=== PATIENT | male | born 1970 | race Caucasian/White ===

== ENCOUNTER 2021-05-11 12:58 | Outpatient (REF) | payer OTHER, SELFPAY ==
[2021-05-11 15:05] LABS: Alanine Aminotransferase 32 U/L (0-40); Cholesterol 122 mg/dL; HDL Cholesterol 54 mg/dL; LDL Cholesterol Calculated 50 mg/dl; Triglycerides 94 mg/dL
== END 2021-05-11 12:59 | disposition home or self-care (01) ==
LOC: HO.LAB 12:58
PROVIDERS: PCP Internal Medicine; Visit Provider Internal Medicine Interventional Cardiology
DX: Q21.1 Atrial septal defect (principal)
CPT/HCPCS: 36415; 80061; 84460

== ENCOUNTER 2022-07-12 06:27 | Outpatient (REF) | payer OTHER, SELFPAY ==
[2022-07-12 06:37] LABS: MANUAL DIFF FLAG NO
[2022-07-12 07:31] LABS: Basophils Percent Auto 0.4 % (0-2); Eosinophils Absolute Auto 0.1 X10*3/uL (0.0-0.4); Hematocrit 38.5 % (42.0-52.0); Hemoglobin 12.8 g/dl (14.0-18.0); Imm Gran Abs Auto 0.02 X10*3/uL (0.00-0.03); Imm Gran Pct Auto 0.3 % (0.0-0.4); Lymphocytes Absolute Auto 1.9 X10*3/uL (1.2-4.9); Lymphocytes Percent Auto 25.8 % (20-40); Mean Corpuscular HGB Conc 33.2 g/dl (31.0-36.0); Mean Corpuscular Hemoglobin 32.2 pg (27.0-33.0); Mean Corpuscular Volume 96.7 fL (80.0-98.0); Mean Platelet Volume 9.4 fL (9.4-12.4); Monocytes Absolute Auto 0.7 X10*3/uL (0.1-1.2); Monocytes Percent Auto 9.7 % (2-11); Neutrophils Absolute Auto 4.5 x10*3/uL (2.0-8.3); Neutrophils Percent Auto 62.8 % (45-73); Platelet Count 192 X10*3/uL (160-400); Red Blood Count 3.98 X10*6/uL (4.60-5.80); White Blood Count 7.2 X10*3/uL (4.8-10.8)
[2022-07-12 08:09] LABS: Alanine Aminotransferase 25 U/L (0-40); Albumin Level 4.3 g/dL (3.5-5.0); Alkaline Phosphatase 49 U/L (39-117); Anion Gap 9 (12-20); Aspartate Amino Transferase 26 U/L (5-37); Bilirubin Total 0.6 mg/dL (0.0-1.0); Blood Urea Nitrogen 28 mg/dL (9-16); Calcium 9.1 mg/dL (8.4-10.2); Carbon Dioxide 27 mmol/L (22-29); Chloride 105 mmol/L (96-108); Cholesterol 98 mg/dL; Estimated Glomerular Filt Rate > 60; Glucose Fasting 121 mg/dL (60-99); HDL Cholesterol 45 mg/dL; LDL Cholesterol Calculated 45 mg/dl; Potassium 4.4 mmol/L (3.3-5.1); Sodium 137 mmol/L (135-145); Total Protein 6.7 g/dL (6.5-8.0); Triglycerides 41 mg/dL
== END 2022-07-12 06:28 | disposition home or self-care (01) ==
LOC: HO.LAB 06:27
PROVIDERS: PCP Internal Medicine; Visit Provider Internal Medicine
DX: Z12.5 Encounter for screening for malignant neoplasm of prostate (principal); I25.10 Atherosclerotic heart disease of native coronary artery without angina pectoris; I10 Essential (primary) hypertension; E78.00 Pure hypercholesterolemia, unspecified
CPT/HCPCS: 36415; 80053; 80061; 84153; 85025

== ENCOUNTER 2022-07-20 06:00 | Outpatient (REF) | payer OTHER, SELFPAY ==
[2022-07-20 07:17] LABS: Glucose Fasting 123 mg/dL (60-99); Iron 73 mcg/dL (45-160); Percent Iron Saturation 29 % (15-50); Total Iron Binding Capacity 250 mcg/dL (228-428); Unsaturated Iron Binding 177 ug/dL
[2022-07-20 07:29] LABS: Estimated Average Glucose 120 mg/dL; Hemoglobin A1c % 5.8 %
== END 2022-07-20 06:01 | disposition home or self-care (01) ==
LOC: HO.LAB 06:00
PROVIDERS: PCP Internal Medicine; Visit Provider Internal Medicine
DX: R73.9 Hyperglycemia, unspecified (principal); D64.9 Anemia, unspecified
CPT/HCPCS: 36415; 82947; 83036; 83540

== ENCOUNTER 2023-12-25 15:29 | Outpatient (REF) | payer MEDICARE, SELFPAY ==
[2023-12-25 15:48] LABS: MANUAL DIFF FLAG NO
[2023-12-25 16:35] LABS: Basophils Percent Auto 0.5 % (0-2); Eosinophils Percent Auto 0.4 % (0-4); Hemoglobin 13.2 g/dl (14.0-18.0); Imm Gran Abs Auto 0.02 X10*3/uL (0.00-0.03); Imm Gran Pct Auto 0.2 % (0.0-0.4); Lymphocytes Absolute Auto 2.2 X10*3/uL (1.2-4.9); Lymphocytes Percent Auto 25.4 % (20-40); Mean Corpuscular HGB Conc 34.7 g/dl (31.0-36.0); Mean Corpuscular Hemoglobin 32.9 pg (27.0-33.0); Mean Corpuscular Volume 94.8 fL (80.0-98.0); Mean Platelet Volume 9.8 fL (9.4-12.4); Monocytes Percent Auto 11.4 % (2-11); Neutrophils Absolute Auto 5.3 x10*3/uL (2.0-8.3); Neutrophils Percent Auto 62.1 % (45-73); Platelet Count 194 X10*3/uL (160-400); Red Blood Count 4.01 X10*6/uL (4.60-5.80); White Blood Count 8.5 X10*3/uL (4.8-10.8)
[2023-12-25 17:14] LABS: Alanine Aminotransferase 42 U/L (0-40); Albumin Level 4.6 g/dL (3.5-5.0); Alkaline Phosphatase 65 U/L (39-117); Anion Gap 15 (12-20); Aspartate Amino Transferase 34 U/L (5-37); Bilirubin Total 0.7 mg/dL (0.0-1.0); Blood Urea Nitrogen 31 mg/dL (9-16); Calcium 10.2 mg/dL (8.4-10.2); Carbon Dioxide 26 mmol/L (22-29); Chloride 104 mmol/L (96-108); Cholesterol 109 mg/dL (<200); Estimated Glomerular Filt Rate > 60; Glucose Random 119 mg/dL (60-115); HDL Cholesterol 51 mg/dL (>40); LDL Cholesterol Calculated 41 mg/dL (<100); Potassium 4.2 mmol/L (3.3-5.1); Sodium 141 mmol/L (135-145); Total Protein 7.8 g/dL (6.5-8.0); Triglycerides 87 mg/dL (<150)
[2023-12-25 17:19] LABS: Appearance Urine Clear; Color Urine Yellow; Glucose Urine UA Negative (Negative); Leukocyte Esterase Urine Negative (Negative); Nitrite Urine Negative (Negative); PH 5.5 (5.0-9.0); Specific Gravity - Urine 1.025 (1.005-1.025); Urine Blood Negative (Negative); Urine Ketones Negative (Negative); Urine Protein Negative (Neg-Trace)
[2023-12-25 17:34] LABS: Prostate Specific Antigen 0.65 ng/mL (<0.05-4.0)
== END 2023-12-25 15:30 | disposition home or self-care (01) ==
LOC: HO.LAB 15:29
PROVIDERS: PCP Internal Medicine; Visit Provider Internal Medicine
DX: I25.10 Atherosclerotic heart disease of native coronary artery without angina pectoris (principal); I10 Essential (primary) hypertension; E78.00 Pure hypercholesterolemia, unspecified; Z12.5 Encounter for screening for malignant neoplasm of prostate
CPT/HCPCS: 36415; 80053; 80061; 81003; 84153; 85025

== ENCOUNTER 2024-07-05 15:16 | Outpatient (AMB) | payer MEDICARE, SELFPAY ==
--- NOTE | 2024-07-05 15:52 | A.OFFPC_ITS ---
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 On statin, BB, lisinopril hctz. 118/64. Denies chest pain, exertional dypsnea. Has been working out daily for the past year and l imiting calories without any successful weight loss Follows with dermatology, Dr Loo Colonoscopy at age 49-10 years. ROS CONSTITUTIONAL: Denies weight loss, fever and chills. HEENT: Denies changes in vision and hearing. RESPIRATORY: Denies SOB and cough. CV: Denies palpitations and CP GI: Denies abdominal pain, nausea, vomiting and diarrhea. : Denies dysuria and urinary frequency. MSK: Denies new myalgia and joint pain. SKIN: Denies rash and pruritus. NEUROLOGICAL: Denies headache PSYCHIATRIC: Denies recent changes in mood. PHYSICAL EXAM: GENERAL: Alert and oriented x 3. NAD EYES: EOMI. Anicteric. HENT: Moist mucous membranes. No scleral icterus. No cervical lymphadenopathy. LUNGS: Clear to auscultation bilaterally. CARDIOVASCULAR: Regular rate and rhythm. No murmur. No JVD. ABDOMEN: Soft, non-tender +bs EXTREMITIES: No edema. Non-tender. SKIN: No rashes or lesions. Warm. NEUROLOGIC: No focal neurological deficits. CN II-XII grossly intact PSYCHIATRIC: Cooperative. Appropriate mood and affect Physical exam (Primary Care) Vital Signs: Last Vital Signs Temp 98.1 F 07/05/24 15:59 Pulse 58 07/05/24 15:59 Resp 16 07/05/24 15:59 BP 118/64 07/05/24 15:59 Pulse Ox 95 07/05/24 15:59 Oxygen Delivery Method Room Air 07/05/24 15:59 BMI result Body Mass Index 35.6 Coding Level of Care Code New Pt Level 4 (54053) Complex EM visit Add On G2211 Diagnoses Hyperlipidemia, unspecified hyperlipidemia type E78.5 Hyperlipidemia type: unspecified Coronary artery disease involving [place] coronary artery of [place] heart without angina pectoris I25.10 Coronary Disease-Associated Artery/Lesion type: [place] artery [place] vs. transplanted heart: [place] heart Associated angina: without angina Primary hypertension I10 Hypertension type: primary hypertension Prediabetes R73.03 Assessment & Plan Assessment & Plan (1) Hyperlipidemia: Code(s): E78.5 - Hyperlipidemia, unspecified Category: Medical Qualifiers: Hyperlipidemia type: unspecified Qualified Code(s): E78.5 - Hyperlipidemia, unspecified (2) CAD (coronary artery disease): Code(s): I25.10 - Atherosclerotic heart disease of [place] coronary artery without angina pectoris Category: Medical Qualifiers: Coronary Disease-Associated Artery/Lesion type: [place] artery [place] vs. transplanted heart: [place] heart Associated angina: without angina Qualified Code(s): I25.10 - Atherosclerotic heart disease of [place] coronary artery without angina pectoris (3) Hypertension: Code(s): I10 - Essential (primary) hypertension Category: Medical Qualifiers: Hypertension type: primary hypertension Qualified Code(s): I10 - Essential (primary) hypertension (4) Prediabetes: Code(s): R73.03 - Prediabetes Category: Medical Plan 53 yo to establish Past medical, surgical, social and family history reviewed CAD with htn, hld and obesity. Recommend zepbound which is sent. zofran prn HTN-well controlled on current medication Orders: Orders Comprehensive Met. Panel Today E66.9 - Obesity, unspecified, E78.5 - Hyperlipidemia, unspecified, I10 - Essential (primary) hypertension, I25.10 - Atherosclerotic heart disease of [place] coronary artery without angina pectoris Lipid Panel Today E66.9 - Obesity, unspecified, E78.5 - Hyperlipidemia, unspecified, I10 - Essential (primary) hypertension, I25.10 - Atherosclerotic heart disease of [place] coronary artery without angina pectoris Prostate Specific Antigen Today E78.5 - Hyperlipidemia, unspecified, I10 - Essential (primary) hypertension, I25.10 - Atherosclerotic heart disease of [place] coronary artery without angina pectoris, R73.03 - Prediabetes Hemoglobin A1c Today E66.9 - Obesity, unspecified, E78.5 - Hyperlipidemia, unspecified, I10 - Essential (primary) hypertension, I25.10 - Atherosclerotic heart disease of [place] coronary artery without angina pectoris Comprehensive Met. Panel 6 Months E78.5 - Hyperlipidemia, unspecified, I10 - Essential (primary) hypertension, I25.10 - Atherosclerotic heart disease of [place] coronary artery without angina pectoris, R73.03 - Prediabetes Complete Blood Count Auto Diff Today E78.5 - Hyperlipidemia, unspecified, I10 - Essential (primary) hypertension, I25.10 - Atherosclerotic heart disease of [place] coronary artery without angina pectoris, R73.03 - Prediabetes Lipid Panel 6 Months E78.5 - Hyperlipidemia, unspecified, I10 - Essential (primary) hypertension, I25.10 - Atherosclerotic heart disease of [place] coronary artery without angina pectoris, R73.03 - Prediabetes Hemoglobin A1c 6 Months E78.5 - Hyperlipidemia, unspecified, I10 - Essential (primary) hypertension, I25.10 - Atherosclerotic heart disease of [place] coronary artery without angina pectoris, R73.03 - Prediabetes Referrals Cardiology Referral E78.5 - Hyperlipidemia, unspecified, I10 - Essential (primary) hypertension, I25.10 - Atherosclerotic heart disease of [place] coronary artery without angina pectoris, R73.03 - Prediabetes Dermatology Referral D22.9 - Melanocytic nevi, unspecified, E78.5 - Hyperlipidemia, unspecified, I10 - Essential (primary) hypertension, I25.10 - Atherosclerotic heart disease of [place] coronary artery without angina pectoris, R73.03 - Prediabetes Medications: New Zepbound (tirzepatide (weight loss)) for 4 weeks 2.5 mg (0.5 mL) subcut QWEEK 2 mL 1RF NS E66.9 - Obesity, unspecified, I10 - Essential (primary) hypertension, I25.10 - Atherosclerotic heart disease of [place] coronary artery without angina pectoris ondansetron HCl 4 mg PO Q8H PRN 30 tabs 0RF nausea and vomiting
[2024-07-05 15:59] VITALS: BP 118/64; PULSE 58; RESP 16; TEMP 36.7; O2SAT 95; BMI 35.6
== END 2024-07-05 16:26 | disposition home or self-care (01) ==
LOC: HO.HMCHD 15:16
PROVIDERS: PCP Internal Medicine; Visit Provider Internal Medicine
DX: E78.5 Hyperlipidemia, unspecified (principal); I25.10 Atherosclerotic heart disease of native coronary artery without angina pectoris; I10 Essential (primary) hypertension; R73.03 Prediabetes

== ENCOUNTER → 2024-07-05 15:16 | Outpatient (BNVA) | payer MEDICARE, SELFPAY | PROVIDERS: PCP Internal Medicine; Visit Provider Internal Medicine | DX: I25.10 Atherosclerotic heart disease of native coronary artery without angina pectoris (principal); I25.2 Old myocardial infarction; I10 Essential (primary) hypertension; E78.5 Hyperlipidemia, unspecified; R73.03 Prediabetes; E66.9 Obesity, unspecified; D22.9 Melanocytic nevi, unspecified; Z68.35 Body mass index [BMI] 35.0-35.9, adult | CPT/HCPCS: 99202 ==

== ENCOUNTER 2024-07-06 07:04 | Outpatient (REF) | payer MEDICARE, SELFPAY ==
[2024-07-06 07:20] LABS: MANUAL DIFF FLAG NO
[2024-07-06 07:32] LABS: Basophils Absolute Auto 0.1 X10*3/uL (0.0-0.2); Basophils Percent Auto 0.7 % (0-2); Eosinophils Absolute Auto 0.1 X10*3/uL (0.0-0.4); Eosinophils Percent Auto 1.6 % (0-4); Hematocrit 37.7 % (42.0-52.0); Hemoglobin 12.9 g/dl (14.0-18.0); Imm Gran Abs Auto 0.03 X10*3/uL (0.00-0.03); Imm Gran Pct Auto 0.4 % (0.0-0.4); Lymphocytes Absolute Auto 2.2 X10*3/uL (1.2-4.9); Mean Corpuscular HGB Conc 34.2 g/dl (31.0-36.0); Mean Corpuscular Hemoglobin 32.7 pg (27.0-33.0); Mean Corpuscular Volume 95.4 fL (80.0-98.0); Mean Platelet Volume 9.4 fL (9.4-12.4); Monocytes Absolute Auto 0.8 X10*3/uL (0.1-1.2); Neutrophils Absolute Auto 4.4 x10*3/uL (2.0-8.3); Neutrophils Percent Auto 58.3 % (45-73); Platelet Count 164 X10*3/uL (160-400); Red Blood Count 3.95 X10*6/uL (4.60-5.80); Red Cell Distribution Width 13.2 % (11.0-16.0); White Blood Count 7.5 X10*3/uL (4.8-10.8)
[2024-07-06 07:49] LABS: Estimated Average Glucose 137 mg/dL; Hemoglobin A1C 158.7719 umol/L; Hemoglobin A1c % 6.4 % (<6.0); Total Hemoglobin (HGBA1C) 3432.0554 umol/L
[2024-07-06 07:55] LABS: Alanine Aminotransferase 54 U/L (0-40); Albumin Level 4.3 g/dL (3.5-5.0); Alkaline Phosphatase 65 U/L (39-117); Anion Gap 16 (12-20); Aspartate Amino Transferase 41 U/L (5-37); Bilirubin Total 0.5 mg/dL (0.0-1.0); Blood Urea Nitrogen 36 mg/dL (9-16); Calcium 9.7 mg/dL (8.4-10.2); Carbon Dioxide 25 mmol/L (22-29); Chloride 103 mmol/L (96-108); Cholesterol 99 mg/dL (<200); Estimated Glomerular Filt Rate > 60; Glucose Random 124 mg/dL (60-115); HDL Cholesterol 40 mg/dL (>40); LDL Cholesterol Calculated 48 mg/dL (<100); Potassium 4.9 mmol/L (3.3-5.1); Sodium 139 mmol/L (135-145); Total Protein 7.4 g/dL (6.5-8.0); Triglycerides 57 mg/dL (<150)
[2024-07-06 08:21] LABS: Prostate Specific Antigen 0.71 ng/mL (<0.05-4.0)
== END 2024-07-06 07:05 | disposition home or self-care (01) ==
LOC: HO.LAB 07:04
PROVIDERS: PCP Internal Medicine; Visit Provider Internal Medicine
DX: E78.5 Hyperlipidemia, unspecified (principal); I10 Essential (primary) hypertension; I25.10 Atherosclerotic heart disease of native coronary artery without angina pectoris; E66.9 Obesity, unspecified; R73.03 Prediabetes; Z12.5 Encounter for screening for malignant neoplasm of prostate
CPT/HCPCS: 36415; 80053; 80061; 83036; 84153; 85025

== ENCOUNTER 2025-01-03 15:00 | Outpatient (AMB) | payer MEDICARE, SELFPAY ==
--- NOTE | 2025-01-03 15:16 | A.OFFPC_ITS ---
Vital Signs 01/03/25 15:18 Height 5 ft 9.5 in Weight 104.95 kg BMI 33.7 BP 102/60 Blood Pressure Location Lt brachial Position Sitting Respiration 16 Pulse 74 Pulse Source Pulse Oximeter Temp 96.9 F Temp Source Temporal Artery Scan Pulse Oximetry (%) 94 Oxygen Delivery Method Room Air Intake Visit Reasons: 6 Month F/U - see comments Band Singer Required: No Accompanied by: Self / Same As Patient Allergies No Known Allergies Allergy (Verified 01/03/25 15:17) Medication List - Last Reconciled 01/03/25 by KURTIS [place] aspirin 81 mg PO DAILY atorvastatin 80 mg PO DAILY fluorouracil 5% appl topical BEDTIME lisinopril-hydrochlorothiazide 20-25 mg 1 tab PO DAILY metoprolol succinate ER 25 mg PO DAILY metronidazole 0.75% 1 appl topical BID Tobacco use date assessed: 01/03/25 Dental Screening Dental Screen Date: 01/03/25 Did you have a dental visit in the last 12 months?: Yes Did you have a dental problem in the last 6 months where you did not have access to dental care?: No Was dental information given to patient?: Patient has dentist HPI HPI Comments History of Present Illness Details The patient is a 53 year old male with a past medical history of CAD with h/o NSTEMI s/p PCI to -2014, hypertension, hyperlipidemia, h/o concussion presenting for follow up CAD/HTN/HLD: Follows with Dr Ventura, no changes. Echo next October. On statin, BB, lisinopril hctz 20-25mg BID. BP 102/60 in the office. Denies chest pain, exertional dypsnea. Occ lightheadness Prediabetes: Last A1c 6.4% Obesity-BMI 33.7. Runs about 2 miles every other day and alternate days stair climber. Healthy diet. Has lost nearly 20 pounds Follows with dermatology, Dr Loo, precancerous lesions hands and face, q6m Concerns: None Health maintenance: Last colonoscopy 2019, 10 year follow-up ROS: General: No fevers, malaise, unintentional weight loss HEENT: No blurred vision, diplopia. No sore throat, nasal congestion, rhinorrhea, sinus pain, ear pain Cardiovascular: No chest pain, palpitations, or leg edema Respiratory: No shortness of breath, wheezing, cough GI: No abdominal pain, nausea, vomiting, diarrhea, constipation, melena, hematochezia : No dysuria, hematuria, increased urinary frequency, decreased urinary output MSK: No myalgia, back pain Neuro: No headaches, weakness, paresthesias Skin: No rashes or lesions EXAM: Constitutional - Awake and Alert, No apparent distress Eyes - PERRL Cardiovascular - S1S2, RRR, No edema Respiratory - Normal lung expansion, Normal respiratory effort, No respiratory distress, CTA bilaterally Extremities - no calf tenderness bilaterally, no swelling Skin - Warm/Dry Neurological - Alert & oriented x3 Psychological - Appropriate affect [facility] Social History Housing: House Patient Tobacco Use Status: Former Tobacco user Years Smoked: 5 years e-Cigarette/Vaping Use: Never Used service: No Current occupational status: employed and retired 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 How often do you have a drink containing alcohol?: 2-4 times a month 2. How many drinks containing alcohol do you have on a typical day when you are drinking?: 1 or 2 Total Score: 2 Physical exam (Primary Care) Vital Signs: Last Vital Signs Temp 96.9 F 01/03/25 15:18 Pulse 74 01/03/25 15:18 Resp 16 01/03/25 15:18 BP 102/60 01/03/25 15:18 Pulse Ox 94 01/03/25 15:18 Oxygen Delivery Method Room Air 01/03/25 15:18 BMI result Body Mass Index 33.7 Tobacco/Smoking Status: Tobacco use Status Tobacco use date assessed 01/03/25 01/03/25 15:23 Patient Tobacco Use Status Former Tobacco user 01/03/25 15:23 e-Cigarette/Vaping Use Never Used 01/03/25 15:23 Coding Level of Care Code Est Pt Level 4 (86599) Complex EM visit Add On G2211 Diagnoses Primary hypertension I10 Hypertension type: primary hypertension Coronary artery disease involving [place] coronary artery of [place] heart without angina pectoris I25.10 Coronary Disease-Associated Artery/Lesion type: [place] artery [place] vs. transplanted heart: [place] heart Associated angina: without angina Hyperlipidemia, unspecified hyperlipidemia type E78.5 Hyperlipidemia type: unspecified Prediabetes R73.03 Obesity (BMI 35.0-39.9 without comorbidity) E66.9 Assessment & Plan Assessment & Plan (1) Hypertension: Code(s): I10 - Essential (primary) hypertension Category: Medical Qualifiers: Hypertension type: primary hypertension Qualified Code(s): I10 - Essential (primary) hypertension Plan: Low normal. Reduce lisinopril-hydrochlorothiazide 20-25 mg to once daily due to coinciding lightheadedness. Continue Toprol 25 mg daily. He will check his blood pressures at home and notify the office of blood pressures next week. Low-sodium diet (2) CAD (coronary artery disease): Code(s): I25.10 - Atherosclerotic heart disease of [place] coronary artery without angina pectoris Category: Medical Qualifiers: Coronary Disease-Associated Artery/Lesion type: [place] artery [place] vs. transplanted heart: [place] heart Associated angina: without angina Qualified Code(s): I25.10 - Atherosclerotic heart disease of [place] coronary artery without angina pectoris Plan: Stable, no recent anginal chest pain. Continue following with Cardiology as scheduled. Continue baby aspirin, statin, Toprol. Continue with regular exercise (3) Hyperlipidemia: Code(s): E78.5 - Hyperlipidemia, unspecified Category: Medical Qualifiers: Hyperlipidemia type: unspecified Qualified Code(s): E78.5 - Hyperlipidemia, unspecified Plan: Lipid panel ordered. Continue atorvastatin 80 mg daily (4) Prediabetes: Code(s): R73.03 - Prediabetes Category: Medical Plan: A1c ordered (5) Obesity (BMI 35.0-39.9 without comorbidity): Code(s): E66.9 - Obesity, unspecified Category: Medical Plan: Commended on weight loss thus far and encouraged to continue with efforts. Continue exercising routinely. Recommend diet lower in calories with emphasis on increased protein, fruits, vegetables and limiting refined sugars, simple carbohydrates, highly processed foods. Plan Follow-up in the office in 6 months, labs today Orders: Orders Basic Metabolic Panel Today E78.5 - Hyperlipidemia, unspecified, I10 - Essential (primary) hypertension, I25.10 - Atherosclerotic heart disease of [place] coronary artery without angina pectoris, R73.03 - Prediabetes Lipid Panel Today E78.5 - Hyperlipidemia, unspecified, I10 - Essential (primary) hypertension, I25.10 - Atherosclerotic heart disease of [place] coronary artery without angina pectoris, R73.03 - Prediabetes Liver Panel Today E78.5 - Hyperlipidemia, unspecified, I10 - Essential (primary) hypertension, I25.10 - Atherosclerotic heart disease of [place] coronary artery without angina pectoris, R73.03 - Prediabetes Hemoglobin A1c Today E78.5 - Hyperlipidemia, unspecified, I10 - Essential (primary) hypertension, I25.10 - Atherosclerotic heart disease of [place] coronary artery without angina pectoris, R73.03 - Prediabetes Medications: Changed From lisinopril-hydrochlorothiazide 20-25 mg PO ONCE To lisinopril-hydrochlorothiazide 20-25 mg 1 tab PO DAILY 90 tabs 1RF
[2025-01-03 15:18] VITALS: BP 102/60; PULSE 74; RESP 16; TEMP 36.1; O2SAT 94; BMI 33.7
== END 2025-01-03 15:38 | disposition home or self-care (01) ==
LOC: HO.HMCHD 15:00
PROVIDERS: PCP Internal Medicine; Visit Provider Physician Assistant
DX: I10 Essential (primary) hypertension (principal); I25.10 Atherosclerotic heart disease of native coronary artery without angina pectoris; E78.5 Hyperlipidemia, unspecified; R73.03 Prediabetes; E66.9 Obesity, unspecified

== ENCOUNTER 2025-01-03 15:00 | Outpatient (REF) | payer MEDICARE, SELFPAY ==
[2025-01-03 16:43] LABS: Alanine Aminotransferase 51 U/L (0-40); Albumin Level 4.9 g/dL (3.5-5.0); Alkaline Phosphatase 70 U/L (39-117); Anion Gap 13 (12-20); Aspartate Amino Transferase 53 U/L (5-37); Blood Urea Nitrogen 43 mg/dL (9-16); Calcium 10.2 mg/dL (8.4-10.2); Carbon Dioxide 28 mmol/L (22-29); Chloride 105 mmol/L (96-108); Cholesterol 113 mg/dL (<200); Estimated Glomerular Filt Rate 46; HDL Cholesterol 55 mg/dL (>40); Potassium 4.8 mmol/L (3.3-5.1); Sodium 141 mmol/L (135-145); Total Protein 7.9 g/dL (6.5-8.0); Triglycerides 88 mg/dL (<150)
== END 2025-01-03 15:01 | disposition home or self-care (01) ==
LOC: HO.LAB 15:00
PROVIDERS: PCP Physician Assistant; Visit Provider Physician Assistant
DX: R73.03 Prediabetes (principal); E78.5 Hyperlipidemia, unspecified; I25.10 Atherosclerotic heart disease of native coronary artery without angina pectoris; I10 Essential (primary) hypertension
CPT/HCPCS: 36415; 80048; 80061; 80076; 83036; 99212

== ENCOUNTER 2025-01-10 06:48 | Outpatient (REF) | payer BC, SELFPAY ==
--- OUTSIDE RECORDS SUMMARY | 2025-01-10 06:53 | XMS_ITS | Patient Health Record ---
Author Organization [facility] Address [address] [place] [address] Care Team Providers Care Lcpc Name Role Phone Vazquez (RETIRED) Eleazar PIERRE Primary Care Provide r Unavailable Toby Ontiveros Jr Unavailable Reason For Referral No Information Medications Medication SIG (Take, Route, Frequency, Duration) Notes Start Date End Date Status Atorvastatin Calcium Active Metoprolol Succinate ER Active Lisinopril Active MiraLax (colon prep) 8.3 ounce ((238) grams mixed with Gatorade or Crystal Light orally begin at 5:00 p.m. the day before the procedure; Duration: 1 day 05/30/2019 Active Aspirin 81 Active Immunizations Vaccine Route Administration Date Status Comme nts Influenza Unknown 11/20/2018 Administered Social History Tobacco Use: Social History Observation Description Date Details (start date - stop date) Former Smoker NA - NA Social History Drugs/Alcohol: Social Info Question Answer Notes Alcohol Screen Did you have a drink containing alcohol in the past year? Yes How often did you have a drink containing alcohol in the past year? Monthly or less (1 point) How many drinks did you have on a typical day when you were drinking in the past year? 1 or 2 drinks (0 point) How often did you have 6 or more drinks on one occasion in the past year? Never (0 point) Points 1 Interpretation Negative Tobacco Use: Social Info Question Answer Notes Tobacco Use/Smoking Patient is a former smoker How long has it been since you last smoked? 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 Problems Problem Type SNOMED Code ICD Code Onset Dates Problem Status W/U Status Risk Notes Problem Colon cancer screening (507266550) Colon cancer screening (Z12.11) Active confirmed Plan Of Treatment Future Test Test Name Order Date COLONOSCOPY 05/30/2019 Insurance Providers Payer Name Payer Address Payer Phone Subscriber Number Group Number Insured Name Patient Relationship to Insured Coverage Start Date Coverage End Date [facility] [address] [facility] [place] [phone] [id number] KAL ZELAYA Self - patient is the insured Medical (General) History Medical History History ICD Code coronary artery disease with history of GA and stent placement 5 years ago, recent stress/echo negative hypertension elevated cholesterol Surgical History Surgery Date(Month/Year) appendectomy Cardiac stent
[2025-01-10 07:48] LABS: Alanine Aminotransferase 36 U/L (0-40); Albumin Level 4.5 g/dL (3.5-5.0); Alkaline Phosphatase 67 U/L (39-117); Anion Gap 10 (12-20); Aspartate Amino Transferase 36 U/L (5-37); Blood Urea Nitrogen 24 mg/dL (9-16); Calcium 9.4 mg/dL (8.4-10.2); Carbon Dioxide 25 mmol/L (22-29); Chloride 105 mmol/L (96-108); Cholesterol 103 mg/dL (<200); Estimated Glomerular Filt Rate > 60; HDL Cholesterol 50 mg/dL (>40); Potassium 4.3 mmol/L (3.3-5.1); Sodium 136 mmol/L (135-145); Total Protein 7.4 g/dL (6.5-8.0); Triglycerides 56 mg/dL (<150)
[2025-01-10 08:40] LABS: Hemoglobin A1C 95.4987 umol/L
== END 2025-01-10 06:49 | disposition home or self-care (01) ==
LOC: HO.LAB 06:48
PROVIDERS: Absent Provider Physician Assistant; PCP Physician Assistant; Visit Provider Internal Medicine
DX: I10 Essential (primary) hypertension (principal); I25.10 Atherosclerotic heart disease of native coronary artery without angina pectoris; R73.03 Prediabetes; E78.5 Hyperlipidemia, unspecified
CPT/HCPCS: 36415; 80053; 80061; 83036